=== PATIENT | male | born 1960 | race Caucasian/White ===

== ENCOUNTER 2017-06-02 13:15 | Inpatient (IN) | payer OTHER ==
[~2017-06-02] VITALS: Ht 177.8 cm; Wt 111.4 kg
[~2017-06-02 13:15] MED LIST: AGELESS MALE PO; AMBIEN10 MG PO; AVAPRO300 MG PO; FLONASE16 G1 BOTH NARES; GLUCOSAMINE &1 EAC1 PO; LYRICA25 MG PO; MULTIVITAMIN1 EAC2 PO; NORVASC10 MG PO; OXYCODONE HCL5 MG PO; PriLOSEC PO; ZENPEP DR 15,01 EACH PO
[2017-06-02 14:05] LABS: HEMATOCRIT 33.2 % (38.0-50.0); MCH 31.1 PG (29.0-34.0); MCV 91.5 FL (86-99); MEAN PLAT.VOLUME 11.7 uM^3 (9.0-12.4); PLATELET COUNT 176 K/uL (156-360); RBC DIS.WIDTH-CV 13.1 % (11.8-14.6); RBC DIS.WIDTH-SD 43.8 % (39-53); RED BLOOD COUNT 3.63 M/uL (4.00-5.50); WHITE BLOOD COUNT 14.6 K/uL (4.1-10.2)
[2017-06-02 14:13] LABS: INTER. NORMALIZED RATIO 1.4; PROTHROMBIN TIME 15.1 SEC (10.2-12.9)
[2017-06-02 14:14] LABS: CHLORIDE 94 mEq/L (99-109); POTASSIUM 3.5 mEq/L (3.7-5.4); SODIUM 135 mEq/L (136-147)
[2017-06-02 14:15] LABS: PTT 23.9 SEC (25-37)
[2017-06-02 14:16] LABS: GLUCOSE 125 mg/dL (70-99)
[2017-06-02 14:17] LABS: ANION GAP 17 MEQ/L (2-14)
[2017-06-02 14:18] LABS: TOTAL BILIRUBIN 0.6 mg/dL (0.0-1.0)
[2017-06-02 14:19] LABS: ALKALINE PHOSPHATASE 74 IU/L (3-129)
[2017-06-02 14:20] LABS: GFR ESTIMATE (CALCULATED) 25 mL/min/
[2017-06-02 14:21] LABS: UREA NITROGEN (BUN) 44 mg/dL (9-23)
[2017-06-02 14:23] LABS: LIPASE 13 U/L (1.0-51.0)
[2017-06-02 15:10] LABS: ABS NEUTROPHIL COUNT 12.9; ANISOCYTOSIS 1+; ATYPICAL LYMPHOCYTE 1.8 %; BAND NEUTROPHILS 15.8 % (0-8.0); EOSINOPHIL ABS CT 0.4; EOSINOPHILS 2.6 % (0-5.0); GIANT PLATELETS 1+; INSTRUMENT ABS NEUTROPHIL CT 12.2 K/uL; LYMPHOCYTES 3.5 % (15.0-45.0); METAMYELOCYTES 0.9 %; PLAT.SUFFICIENCY ADEQUATE; PLATELET CLUMPS PRESENT - PLATELET COUNT APPEARS ADQ.; SEG.NEUTROPHILS 72.8 % (46.0-76.0)
[2017-06-02] MEDS ORDERED: MORPHINE SULFAT30 M2 PO (15:44)
[2017-06-02] MEDS ORDERED: OXYCODONE HCL10 MG PO (15:46)
[2017-06-02 17:01] LABS: ADD MIUA? YES; BILIRUBIN NEGATIVE; BLOOD NEGATIVE; COLOR AMBER ((YELLOW)); GLUCOSE (STRIP) NEGATIVE; KETONES NEGATIVE; LEUKOCYTES NEGATIVE; NITRITE NEGATIVE; PROTEIN (STRIP) 30; SPECIFIC GRAVITY 1.017 (1.000-1.030)
[2017-06-02] MEDS ORDERED: LOSARTAN POTAS100 MG PO (17:10)
[2017-06-02] MEDS ORDERED: NEURONTIN600 MG PO (17:11)
[2017-06-02] MEDS ORDERED: PROMETHAZINE HC25 M1 PO (17:11)
[2017-06-02] MEDS ORDERED: ADALAT CC 60 MG60 MG PO (17:12)
[2017-06-02] MEDS ORDERED: AMLODIPINE BESYL5 MG PO (17:12)
[2017-06-02 17:13] LABS: BACTERIA RARE /HPF; EPITHELIAL CELLS RARE /HPF; HYALINE CASTS 30-40 /LPF; MUCUS TRACE /LPF; RED BLOOD CELLS NONE SEEN /HPF (0-5); UCUL ADDED? NO; WHITE BLOOD CELLS 0-5 /HPF (0-5)
[2017-06-02] MEDS ORDERED: METOPROLOL SUC100 MG PO (17:13)
[2017-06-02] MEDS ORDERED: CELEBREX200 MG PO (17:13)
[2017-06-02] MEDS ORDERED: ZOLPIDEM TARTRA10 MG PO (17:15)
[2017-06-02] MEDS ORDERED: MOVANTIK25 MG PO (17:16)
[2017-06-02] MEDS ORDERED: EZETIMIBE10 MG PO (17:16)
[2017-06-02] MEDS ORDERED: NEURONTIN300 MG PO (18:13)
[2017-06-02] MEDS ORDERED: PRILOSEC20 MG PO (18:15)
[2017-06-02] MEDS ORDERED: LIDODERM 5% P1 PATCH TD (18:17)
[2017-06-02] MEDS ORDERED: ASPIRIN325 MG PO (18:17)
[2017-06-02] MEDS ORDERED: COQ PO (18:19)
[2017-06-02 21:48] LABS: MAGNESIUM 1.7 mg/dL (1.3-2.7)
[2017-06-02 22:08] VITALS: BP 106/55
[2017-06-02 22:31] LABS: C DIFF TOXIN POSITIVE (NEGATIVE)
[2017-06-02 22:32] VITALS: BP 85/50
[2017-06-02 22:39] LABS: PROBE CHECK PASS
[2017-06-02 23:30] VITALS: BP 99/53
[2017-06-03] VITALS (11 sets, daily range): BP systolic 87–133; BP diastolic 53–70
[2017-06-03 01:39] LABS: TROP-I INTERPRETATION NEGATIVE; TROPONIN-I < 0.01 ng/mL (0.0-0.30)
[2017-06-03 06:42] LABS: EOSINOPHIL (%) 2.9 % (0-5); EOSINOPHIL COUNT 0.2 K/uL (0-0.3); HEMATOCRIT 30.3 % (38.0-50.0); IMMATURE GRANULOCYTE (%) 0.8 % (0.0-0.7); IMMATURE GRANULOCYTE COUNT 0.1 K/uL; INSTRUMENT ABS NEUTROPHIL CT 6.4 K/uL; LYMPHOCYTE COUNT 0.3 K/uL (1.0-2.8); MCHC 35.6 G/DL (30.0-36.0); MCV 92.7 FL (86-99); MEAN PLAT.VOLUME 11.9 uM^3 (9.0-12.4); MONOCYTE (%) 8.3 % (3-12); MONOCYTE COUNT 0.6 K/uL (0-0.8); NEUTROPHIL (%) 83.4 % (45-76); NEUTROPHIL COUNT 6.4 K/uL (1.8-6.4); PLATELET COUNT 158 K/uL (156-360); RBC DIS.WIDTH-CV 13.2 % (11.8-14.6); RBC DIS.WIDTH-SD 44.6 % (39-53); RED BLOOD COUNT 3.27 M/uL (4.00-5.50); WHITE BLOOD COUNT 7.6 K/uL (4.1-10.2)
[2017-06-03 07:11] LABS: TROP-I INTERPRETATION NEGATIVE; TROPONIN-I < 0.01 ng/mL (0.0-0.30)
[2017-06-03 07:12] LABS: ANION GAP 12 MEQ/L (2-14); CHLORIDE 104 MEQ/L (99-109); GFR ESTIMATE (CALCULATED) > 59 mL/min/; GLUCOSE 123 mg/dL (70-99); POTASSIUM 3.5 MEQ/L (3.7-5.4); SAMPLE HEMOLYSIS CHECK 0; SAMPLE ICTERIC CHECK 0; SAMPLE LIPEMIA CHECK 0; SODIUM 139 MEQ/L (136-147); UREA NITROGEN (BUN) 28 mg/dL (9-23)
[2017-06-03 12:50] LABS: TROP-I INTERPRETATION NEGATIVE; TROPONIN-I < 0.01 ng/mL (0.0-0.30)
[2017-06-04 03:47] VITALS: BP 125/78
[2017-06-04 06:01] LABS: EOSINOPHIL (%) 2.4 % (0-5); EOSINOPHIL COUNT 0.1 K/uL (0-0.3); HEMATOCRIT 29.9 % (38.0-50.0); IMMATURE GRANULOCYTE (%) 0.9 % (0.0-0.7); IMMATURE GRANULOCYTE COUNT 0.1 K/uL; INSTRUMENT ABS NEUTROPHIL CT 4.3 K/uL; LYMPHOCYTE COUNT 0.5 K/uL (1.0-2.8); MCH 32.1 PG (29.0-34.0); MCHC 34.8 G/DL (30.0-36.0); MCV 92.3 FL (86-99); MEAN PLAT.VOLUME 11.2 uM^3 (9.0-12.4); MONOCYTE (%) 7.8 % (3-12); MONOCYTE COUNT 0.4 K/uL (0-0.8); NEUTROPHIL (%) 79.4 % (45-76); NEUTROPHIL COUNT 4.3 K/uL (1.8-6.4); PLATELET COUNT 180 K/uL (156-360); RBC DIS.WIDTH-CV 13.2 % (11.8-14.6); RBC DIS.WIDTH-SD 44.9 % (39-53); RED BLOOD COUNT 3.24 M/uL (4.00-5.50); WHITE BLOOD COUNT 5.4 K/uL (4.1-10.2)
[2017-06-04 06:30] LABS: ALKALINE PHOSPHATASE 45 IU/L (3-129); ANION GAP 8 MEQ/L (2-14); CHLORIDE 107 MEQ/L (99-109); GFR ESTIMATE (CALCULATED) > 59 mL/min/; GLUCOSE 116 mg/dL (70-99); POTASSIUM 3.1 MEQ/L (3.7-5.4); SAMPLE HEMOLYSIS CHECK 0; SAMPLE ICTERIC CHECK 0; SAMPLE LIPEMIA CHECK 0; SODIUM 143 MEQ/L (136-147); TOTAL BILIRUBIN 0.4 MG/DL (0.0-1.0); UREA NITROGEN (BUN) 8 mg/dL (9-23)
[2017-06-04 08:00] VITALS: BP 126/78
[2017-06-04] MEDS ORDERED: VANCOMYCIN HCL125 MG PO (11:22)
[2017-06-04 13:18] VITALS: BP 152/86
[2017-06-04 17:08] VITALS: BP 138/82
[2017-06-04 18:02] VITALS: BP 120/81
[2017-06-05 00:07] VITALS: BP 121/77
[2017-06-05 05:59] LABS: EOSINOPHIL (%) 3.6 % (0-5); EOSINOPHIL COUNT 0.2 K/uL (0-0.3); HEMATOCRIT 29.6 % (38.0-50.0); IMMATURE GRANULOCYTE (%) 1.2 % (0.0-0.7); IMMATURE GRANULOCYTE COUNT 0.1 K/uL; INSTRUMENT ABS NEUTROPHIL CT 3.5 K/uL; LYMPHOCYTE COUNT 0.8 K/uL (1.0-2.8); MCH 32.7 PG (29.0-34.0); MCHC 34.8 G/DL (30.0-36.0); MEAN PLAT.VOLUME 11.6 uM^3 (9.0-12.4); MONOCYTE (%) 9.2 % (3-12); MONOCYTE COUNT 0.5 K/uL (0-0.8); NEUTROPHIL (%) 69.7 % (45-76); NEUTROPHIL COUNT 3.5 K/uL (1.8-6.4); PLATELET COUNT 211 K/uL (156-360); RBC DIS.WIDTH-CV 13.2 % (11.8-14.6); RBC DIS.WIDTH-SD 45.6 % (39-53); RED BLOOD COUNT 3.15 M/uL (4.00-5.50)
[2017-06-05 07:17] LABS: ANION GAP 9 MEQ/L (2-14); CHLORIDE 106 MEQ/L (99-109); GFR ESTIMATE (CALCULATED) > 59 mL/min/; GLUCOSE 95 mg/dL (70-99); SAMPLE HEMOLYSIS CHECK 0; SAMPLE ICTERIC CHECK 0; SAMPLE LIPEMIA CHECK 0; SODIUM 143 MEQ/L (136-147); UREA NITROGEN (BUN) 7 mg/dL (9-23)
[2017-06-05 07:19] LABS: POTASSIUM 3.8 MEQ/L (3.7-5.4)
[2017-06-05 08:19] VITALS: BP 126/67
[2017-06-05 12:23] VITALS: BP 126/67
== END 2017-06-05 15:34 | disposition home or self-care (01) | DRG 872 ==
LOC: EME 13:15 → EXP 13:15 → EDOF 17:18 → 4EAST 21:42 → 5SOUTH 06-04 17:53
PROVIDERS: Hospitalist; Internal Medicine; Physician Assistant
DX: A41.4 Sepsis due to anaerobes (principal); N17.9 Acute kidney failure, unspecified; A04.7 Enterocolitis due to Clostridium difficile; K86.1 Other chronic pancreatitis; E87.2 Acidosis; I95.9 Hypotension, unspecified; E87.6 Hypokalemia; E86.0 Dehydration; I10 Essential (primary) hypertension; K21.9 Gastro-esophageal reflux disease without esophagitis; E78.5 Hyperlipidemia, unspecified; G89.29 Other chronic pain; R65.20 Severe sepsis without septic shock; Z96.612 Presence of left artificial shoulder joint; Z79.899 Other long term (current) drug therapy; Z79.82 Long term (current) use of aspirin; Z68.35 Body mass index [BMI] 35.0-35.9, adult; Z87.891 Personal history of nicotine dependence
CPT/HCPCS: 71020; 74176; 80048; 80053; 81003; 83605; 83690; 83735; 83880; 84100; 84484; 85025; 85610; 85730; 86900; 86901; 87040; 87493; 94799; 99281; 99285; J1650; J2270; J2543; J3370; J7030; J7120; Q0169; S0028; S0030

== ENCOUNTER 2017-08-12 21:23 | Emergency (ER) | payer OTHER ==
[~2017-08-12] VITALS: Ht 177.8 cm; Wt 111.2 kg
[~2017-08-12 21:23] MED LIST changes: +ADALAT CC 60 MG60 MG PO; +AMLODIPINE BESYL5 MG PO; +ASPIRIN325 MG PO; +CELEBREX200 MG PO; +COQ PO; +EZETIMIBE10 MG PO; +LIDODERM 5% P1 PATCH TD; +LOSARTAN POTAS100 MG PO; +METOPROLOL SUC100 MG PO; +MORPHINE SULFAT30 M2 PO; +MOVANTIK25 MG PO; +NEURONTIN300 MG PO; +NEURONTIN600 MG PO; +OXYCODONE HCL10 MG PO; +PRILOSEC20 MG PO; +PROMETHAZINE HC25 M1 PO; +VANCOMYCIN HCL125 MG PO; +ZOLPIDEM TARTRA10 MG PO
[2017-08-12 23:11] LABS: EOSINOPHIL (%) 6.8 % (0-5); EOSINOPHIL COUNT 0.4 K/uL (0-0.3); HEMATOCRIT 40.9 % (38.0-50.0); IMMATURE GRANULOCYTE (%) 0.3 % (0.0-0.7); INSTRUMENT ABS NEUTROPHIL CT 2.9 K/uL; LYMPHOCYTE COUNT 2.3 K/uL (1.0-2.8); MCH 30.6 PG (29.0-34.0); MCHC 33.3 G/DL (30.0-36.0); MCV 92.1 FL (86-99); MEAN PLAT.VOLUME 10.5 uM^3 (9.0-12.4); MONOCYTE (%) 9.4 % (3-12); MONOCYTE COUNT 0.6 K/uL (0-0.8); NEUTROPHIL (%) 46.1 % (45-76); NEUTROPHIL COUNT 2.9 K/uL (1.8-6.4); PLATELET COUNT 179 K/uL (156-360); RBC DIS.WIDTH-CV 13.6 % (11.8-14.6); RBC DIS.WIDTH-SD 46.5 % (39-53); RED BLOOD COUNT 4.44 M/uL (4.00-5.50); WHITE BLOOD COUNT 6.3 K/uL (4.1-10.2)
[2017-08-12 23:24] LABS: CHLORIDE 102 mEq/L (99-109); POTASSIUM 4.3 mEq/L (3.7-5.4); SODIUM 139 mEq/L (136-147)
[2017-08-12 23:27] LABS: GLUCOSE 110 mg/dL (70-99)
[2017-08-12 23:28] LABS: ANION GAP 11 MEQ/L (2-14); TOTAL BILIRUBIN 0.9 mg/dL (0.0-1.0)
[2017-08-12 23:31] LABS: ALKALINE PHOSPHATASE 171 IU/L (3-129); GFR ESTIMATE (CALCULATED) > 59 mL/min/
[2017-08-12 23:32] LABS: UREA NITROGEN (BUN) 12 mg/dL (9-23)
[2017-08-12 23:34] LABS: LIPASE 59 U/L (1.0-51.0); TROP-I INTERPRETATION NEGATIVE; TROPONIN-I < 0.01 ng/mL (0.0-0.30)
[2017-08-13 00:11] LABS: SERUM ETHYL ALCOHOL 218 mg/dL
[2017-08-13 03:06] VITALS: BP 112/85
== END 2017-08-13 03:07 | disposition home or self-care (01) ==
LOC: EME 21:23
PROVIDERS: Emergency Medicine
DX: R10.13 Epigastric pain (principal); E86.0 Dehydration; F10.129 Alcohol abuse with intoxication, unspecified; Y90.7 Blood alcohol level of 200-239 mg/100 ml; K86.1 Other chronic pancreatitis; I10 Essential (primary) hypertension; Z79.82 Long term (current) use of aspirin; Z87.891 Personal history of nicotine dependence; Z86.19 Personal history of other infectious and parasitic diseases
CPT/HCPCS: 71010; 74177; 76705; 80053; 81003; 83605; 83690; 84484; 85025; 87040; 87493; 99281; 99285; G0480; J2270; J7030